=== PATIENT | male | born 1985 | race Caucasian/White ===

== ENCOUNTER 2017-05-26 19:01 | Emergency (ER) | payer OTHER ==
[2017-05-26] MEDS ORDERED: Sodium Chloride 0.9% 1,000 ML ONE (20:05)
[2017-05-26 20:08] LABS: Anion Gap 16 mmol/L (10-20); BUN (Urea Nitrogen) 10 mg/dL (8.9-20.6); CK (CPK) 154 U/L (30-200); Calc. Creatinine Clearance 0 mL/min (70-130); Calcium 9.3 mg/dL (7.8-10.44); Carbon Dioxide 25 mmol/L (22-29); Chloride 102 mmol/L (98-107); Estimated GFR-MDRD Greater than 90; Glucose 98 mg/dL (70-105); Potassium 3.6 mmol/L (3.5-5.1); Sodium 139 mmol/L (136-145)
[2017-05-26 20:11] LABS: Band 6 % (5-11); Hemoglobin 15.2 g/dL (14.0-18.0); Lymphocytes 31 % (21-51); MDiff Complete? YES; Mean Corpuscular HGB CONC 33.1 g/dL (32.0-36.0); Mean Corpuscular Hemoglobin 30.3 pg (27.0-31.0); Mean Corpuscular Volume 91.6 fl (80.0-94.0); Mean Platelet Volume 10.1 fL (7.4-10.4); Monocytes 4 % (0-10); Neutrophil 58 % (42-75); PLT Morphology Comment Appears Adequate; Platelet Count 262 thou/uL (130-400); RBC Distribution Width 11.7 % (11.5-14.5); RBC Morphology Normal; Red Blood Cell (RBC) Count 5.01 mill/uL (4.70-6.10); White Blood Cell (WBC) Count 11.5 thou/uL (4.8-10.8)
[2017-05-26 20:15] LABS: CKMB 1.7 ng/mL (0-6.6); Troponin I 0.024 ng/mL (< 0.028)
[2017-05-26] MEDS ORDERED: Nitroglycerin 0.4 MG TAB (25 Tab Bottle) ONE (21:12)
--- NOTE | 2017-05-26 21:32 | RAD ---
CHEST TWO VIEWS: 05/26/17 HISTORY: Chest tightness and fatigue. COMPARISON: None. FINDINGS: Chest two views: Normal cardiac silhouette. The pulmonary vessels and hilum are normal. No consolidation or mass. No p neumothorax or osseous abnormalities. IMPRESSION: No acute cardiopulmonary process. POS: [facility]
[2017-05-26 22:18] LABS: CKMB 1.5 ng/mL (0-6.6)
[2017-05-27] MEDS ORDERED: Acetaminophen 500 MG TAB ONE (00:36)
== END 2017-05-27 01:39 | disposition short-term general hospital (02) ==
LOC: NAV ERS 19:01
DX: R07.9 Chest pain, unspecified (principal); F17.210 Nicotine dependence, cigarettes, uncomplicated
CPT/HCPCS: 36415; 71046; 80048; 82553; 83605; 84484; 85025; 85379; 93005; 96360; J7050